=== PATIENT | male | born 1995 | race Caucasian/White ===

== ENCOUNTER 2019-06-14 02:22 | Emergency (ER) | payer SELFPAY ==
[2019-06-14] MEDS ORDERED: Albuterol 2.5 MG/3 ML NEB.SOL* (0.083%) INH ONE (02:41)
--- NOTE | 2019-06-14 02:46 | ED ---
Asthma - HPI Summary HPI Summary: This patient is a 23 year old male presenting to [facility] with a chief complaint of asthma exacerbation. The patient says this happen to this often and usually takes a nebulizer or inhaler then goes back to bed, however he is visiting [place] and accidentally brought an empty inhaler with him to [facility]. He reports SOB and cough. - History of Current Complaint Chief Complaint: EDAsthma Stated Complaint: ASTHMA ATTCK PER PT Time Seen by Provider: 06/14/19 02:38 Hx Obtained From: Patient Onset/Duration: Lasting Hours Pain Intensity: 0 Location/Character: Cough (Productive) - Allergy/Home Medications Allergies/Adverse Reactions: Allergies Allergy/AdvReac Type Severity Reaction Status Date / Time amphetamine [From Adderall] Allergy Anaphylatic Verified 06/14/19 02:39 Shock dextroamphetamine Allergy Anaphylatic Verified 06/14/19 02:39 [From Adderall] Shock Tree Nuts Allergy Itching Verified 06/14/19 02:39 PMH/Surg Hx/FS Hx/Imm Hx Infectious Disease History: No Infectious Disease History: Denies: Traveled Outside the [place] in Last 30 Days Review of Systems Negative: Fever Positive: Shortness Of Breath, Cough Negative: Abdominal Pain, Vomiting All Other Systems Reviewed And Are Negative: Yes Physical Exam - Summary Physical Exam Summary: Appearance: Well-appearing, Well-nourished, lying in bed comfortably Skin: Warm, dry, no obvious rash Eyes: sclera anicteric, no conjunctival pallor ENT: mucous membranes moist, pharynx appears normal Neck: Supple, nontender Respiratory: Mild expiratory wheezes. Cardiovascular: Normal S1, S2. No murmurs. Normal distal pulses in tibial and radial bilaterally. Abdomen: Soft, nontender, normal active bowel sounds present Musculoskeletal: Normal, Strength/ROM Intact Neurological: A&Ox3, awake and alert, mentation is normal, speech is fluent and appropriate Psychiatric: affect is normal, does not appear anxious or depressed Triage Information Reviewed: Yes Vital Signs On Initial Exam: Initial Vitals Temp Pulse Resp BP Pulse Ox 96.8 F 104 18 122/75 96 06/14/19 02:26 06/14/19 02:26 06/14/19 02:26 06/14/19 02:26 06/14/19 02:26 Vital Signs Reviewed: Yes Diagnostics - Vital Signs Vital Signs Temp Pulse Resp BP Pulse Ox 06/14/19 02:26 96.8 F 104 18 122/75 96 - Laboratory Lab Statement: Any lab studies that have been ordered have been reviewed, and results considered in the medical decision making process. Asthma Course/Dx - Course Course Of Treatment: This patient is a 23 year old male presenting to [facility] with a chief complaint of asthma exacerbation. The patient was given a breathing treatment with resolution of symptoms and an inhaler to take home. A plan for discharge was discussed with the patient and he was agreeable with this plan. - Diagnoses Provider Diagnoses: Asthma exacerbation Discharge ED - Sign-Out/Discharge Documenting (check all that apply): Patient Departure - Discharge Patient Received Moderate/Deep Sedation with Procedure: No - Discharge Plan Condition: Good Disposition: HOME Patient Education Materials: Asthma (ED) Referrals: No Primary Care Phys,NOPCP [Primary Care Provider] - Additional Instructions: Followup with your regular doctor when you get home if needed. - Billing Disposition and Condition Condition: GOOD Disposition: Home - Attestation Statements Document Initiated by Rusty: Yes Documenting Marinaibe: Delonte Patel Provider For Whom Rusty is Documenting (Include Credential): Daron Alatorre MD Scribe Attestation: Delonte Pizarro scribed for Daron Alatorre MD on 06/14/19 at 2327. Scribe Documentation Reviewed: Yes Provider Attestation: The documentation as recorded by the Delonte gastelum accurately reflects the service I personally performed and the decisions made by me, Daron Alatorre MD Status of Scribe Document: Viewed
[2019-06-14] MEDS ORDERED: Albuterol HFA INHALER* 8 gm MDI INH SCH (03:00)
[2019-06-14 03:29] VITALS: BP 120/76
== END 2019-06-14 03:27 | disposition home or self-care (01) ==
LOC: ED 02:22
DX: J45.901 Unspecified asthma with (acute) exacerbation (principal); R05 Cough; Z88.8 Allergy status to other drugs, medicaments and biological substances; Z91.018 Allergy to other foods
CPT/HCPCS: 99282; A9270-GY